=== PATIENT | male | born 2000 | race Caucasian/White ===

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

== ENCOUNTER → 2020-05-03 | Outpatient (CLI) | payer OTHER ==
[~2020-05-03] MED LIST changes: +HYDR1TAB94 PO
== END | disposition home or self-care (01) ==
LOC: LAB 12:40 → LAB SHORT 12:40
DX: J02.9 Acute pharyngitis, unspecified (principal)
CPT/HCPCS: 87081; 87147

== ENCOUNTER 2020-05-06 17:30 | Emergency (ER) | payer SELFPAY ==
[~2020-05-06] VITALS: Ht 180.3 cm; Wt 99.8 kg
[~2020-05-06 17:30] MED LIST changes: -HYDR1TAB94 PO
[2020-05-06] MEDS ORDERED: HYDR1TAB94 PO (19:16)
== END 2020-05-06 19:24 | disposition home or self-care (01) ==
LOC: ER 17:30
DX: S42.025A Nondisplaced fracture of shaft of left clavicle, initial encounter for closed fracture (principal); X50.1XXA Overexertion from prolonged static or awkward postures, initial encounter
CPT/HCPCS: 73000; 73030; 99283-25; A9270

== ENCOUNTER 2020-05-29 21:57 | Emergency (ER) | payer OTHER ==
[~2020-05-29] VITALS: Ht 180.3 cm; Wt 108.9 kg
[~2020-05-29 21:57] MED LIST changes: +HYDR1TAB94 PO
== END 2020-05-29 22:54 | disposition left against medical advice (07) ==
LOC: ER 21:57
DX: Z53.21 Procedure and treatment not carried out due to patient leaving prior to being seen by health care provider (principal)

== ENCOUNTER 2020-11-22 17:51 | Emergency (ER) | payer OTHER ==
[~2020-11-22] VITALS: Ht 180.3 cm; Wt 104.3 kg
== END 2020-11-22 19:20 | disposition home or self-care (01) ==
LOC: ER 17:51
DX: G43.909 Migraine, unspecified, not intractable, without status migrainosus (principal)
CPT/HCPCS: 36415; 96374; 96375; 99283-25; J0780; J1200; J2270; J2405; J7030